=== PATIENT | female | born 1950 | race Caucasian/White ===

== ENCOUNTER 2016-11-22 07:11 | Inpatient (IN) ==
[2016-11-22] MEDS ORDERED: ONDANSETRON 4 MG/2 ML VIAL IV STA (07:46)
[2016-11-22] MEDS ORDERED: ONDANSETRON 4 MG/2 ML VIAL ONE ×2 (07:47→17:10)
--- NOTE | 2016-11-22 07:53 | Emergency Department Note ---
Arrival - Arrival Chief Complaint: Abdominal / Flank Pain Stated Complaint: Abd pain ED Nursing Triage Note: Brought in by EMS c/o RUQ pain-onset last night. Patient had her gallbladder removed by Dr. Rodriguez III on 11/17/16. Mode of Arrival: Stretcher Limitations: No Limitations Source: Patient, Significant other, RN Notes Reviewed Time Seen by Provider: 11/22/16 07:49 - History of Present Illness HPI Narrative: Patient is a 66-year-old white female who is 5 days postop laparoscopic cholecystectomy by Dr. Rodriguez the third. Patient had sudden onset of right upper quadrant abdominal pain at 10 PM last night. Patient complains of nausea vomiting and pain in the right upper quadrant which radiates to her right shoulder. Pain is moderate to severe. She denies any diarrhea. She denies any chills or fever. Onset (ago): hour(s) (10) Consistency: constant Severity: moderate, severe Quality: cramping, aching Date of Last Menstrual Period: menopause Allergies/Adverse Reactions: Allergies Allergy/AdvReac Type Severity Reaction Status Date / Time No Known Allergies Allergy Verified 11/14/16 10:47 Home Medications: Home Medications Medication Instructions Recorded Confirmed Type Aspirin 325 mg PO DAILY 11/14/16 11/17/16 History Aspirin [Aspirin EC] 81 mg PO DAILY 11/14/16 11/17/16 History Cholecalciferol (Vitamin D3) 2,000 unit PO DAILY 11/14/16 11/17/16 History [Vitamin D3] Ferrous Sulfate [Iron] 325 mg PO DAILY 11/14/16 11/17/16 History Gabapentin 300 mg PO DAILY 11/14/16 11/17/16 History Lansoprazole 15 mg PO DAILY 11/14/16 11/17/16 History Losartan [Cozaar] 50 mg PO DAILY 11/14/16 11/17/16 History Metoprolol Succinate 12.5 mg PO DAILY 11/14/16 11/17/16 History Multivitamin [Multivitamins] 1 each PO DAILY 11/14/16 11/17/16 History hydroCHLOROthiazide 12.5 mg PO DAILY 11/14/16 11/17/16 History [Hydrochlorothiazide] HYDROcodone/ACETAMIN 7.5-325 1 tablet PO Q4H PRN #30 tablet 11/17/16 Rx [[place] 7.5-325] Review of System - Review of System 12 point system: reviewed and no additional remarkable complaints except as stated - Review of System Constitutional: Absent: chills, fever Respiratory: Absent: cough, respiratory distress, wheezing Cardiovascular: Absent: chest pain Gastrointestinal: Present: as per HPI, abdominal pain, nausea, vomiting. Absent : diarrhea, constipation, hematemesis, melena, hematochezia Medical,Surgical,& Family Hx - Medical History Cardio: History of: Hypertension Neurology: No history of: Seizures HEENT: History of: Eye Problem (GLASSES) Endocrine: History of: Dyslipidemia Respiratory: Comment Only: Respiratory Problems (TUBE IN LUNG) Musculoskeletal: History of: Osteoporosis - Surgical History Cardiac Surgeries: Sugical HX of: Cardiac Surgery (CABG X3 DR HOUSER) Abdominal Surgeries: Surgical HX of: Cholecystectomy, Colonoscopy Reproductive Surgeries: Surgical HX of;: Breast Surgery (BX), Tubal Ligation - Family History Family History: Reports;: Family Heart Disease (DAD BROTHER), Family Stroke ( MOM GM) - Social History Smoking Status: Never smoker Frequency of Alcohol Use: None Type of Drug Use: None Lives With:: Spouse Functional capacity: independent ambulation Exam Vital Signs: Vital Signs Temperature 97.9 F 11/22/16 07:17 Pulse Rate 58 L 11/22/16 09:00 Respiratory Rate 18 11/22/16 09:00 Blood Pressure 153/72 11/22/16 09:00 O2 Sat by Pulse Oximetry 100 11/22/16 09:00 GENERAL: This is a well-nourished well-developed white female in no apparent distress. VITAL SIGNS: Reviewed HEENT: Head is atraumatic and normocephalic. Pupils are equal round react to light. Extraocular movements are intact. Oropharynx is benign with moist mucous membranes. NECK: Neck is soft and supple without tenderness. There are no masses. There is no lymphadenopathy. LUNGS: Lungs are clear to auscultation. Chest rises symmetrically. There is no chest wall tenderness. CV: Heart is regular rate and rhythm without murmurs rubs or gallops. ABDOMEN: Abdomen is soft, tender to palpation in the right upper quadrant without rebound. Minimal amount of guarding is present. There are no abdominal abnormal masses palpated. There is no organomegaly. Bowel sounds are present and active. Wounds are healing well without any evidence of infection, erythema, induration, or purulent drainage. SKIN: Skin is warm and dry. No rash. EXTREMITIES: Patient has full range of motion without tenderness. There is no pedal edema. NEUROLOGIC: Awake alert and oriented 4. Cranial nerves II through XII are grossly intact. Motor is 5 over 5 in all extremities bilaterally. Course - Consultations Consultation #1: Discussed with Dr. Jennifer BALLESTEROS. He will see the patient in the emergency department. Time: 08:53 Results - Labs CBC & BMP: 11/22/16 07:40 11/22/16 07:40 Lab Results: I have reviewed the patients labs Labs: Laboratory Tests 11/22/16 11/22/16 11/22/16 07:40 07:40 07:56 WBC 10.5 Hgb 12.0 Hct 33.6 L Plt Count 260 Sodium 135 L Potassium 3.7 Chloride 99 Carbon Dioxide 26 Anion Gap 13.7 BUN 20 H Creatinine 0.90 GFR Calculation 62 BUN/Creatinine Ratio 22.00 H Glucose 154 H Calcium 9.7 Total Bilirubin 1.70 H AST 1378 H ALT 1188 H Alkaline Phosphatase 166 H Total Protein 6.6 Albumin 4.1 Globulin 2.5 Albumin/Globulin Ratio 1.6 Lipase 86.0 Urine pH 7.0 Ur Specific [place] 1.012 Urine RBC 7 Urine WBC 1 - Diagnostic Findings Procedure: CT Abdomen and Pelvis: image reviewed by me (Interval development of intra-and extrahepatic ductal dilatation. Patient also has developed ascites and fluid in the gallbladder fossa.) Disposition Clinical Impression: Right upper quadrant abdominal pain, Status post cholecystectomy, Possible biliary leak, Elevated LFTs Case discussed with: patient, patient's family Disposition: Still a Patient Condition: Stable Time of Disposition: 09:15
[2016-11-22 07:56] LABS: Basophils % 0.2 % (0.0-0.8); Eosinophils % 0.4 % (0.00-10.9); Hematocrit 33.6 VOL% (35.7-47.0); Immature Granulocytes % 0.4 %; Immature Granulocytes Absolute 0.04 #; Lymphocytes # 1.2 10*3/uL (1.4-4.0); Lymphocytes % 11.1 % (21.3-54.2); Mean Corpuscular HGB Conc 35.7 GM/DL (32-36); Mean Corpuscular Hemoglobin 33 PG (27-34); Mean Corpuscular Volume 91.1 FL (87-102); Mean Platelet Volume 9.6 FL (9.6-12.0); Monocytes # 0.5 10*3/uL (0.11-0.8); Monocytes % 4.7 % (1.7-12.7); Neutrophils # 8.7 10*3/uL (1.4-7.4); Neutrophils % 83.2 % (38.7-73.9); Platelet Count 260 T/CUMM (130-400); Red Blood Count 3.69 MC/CUMM (3.8-5.5); Red Cell Distribution Width 11.9 % (9.3-17.3); White Blood Count 10.5 T/CUMM (4-12)
[2016-11-22 08:09] LABS: Apearance,Urine CLEAR (Clear); Bilirubin,Urine Negative (Negative); Blood, Urine Small mg/dL (Negative); Glucose,Urine (UA) Negative (Negative); Ketones,Urine Negative (Negative); Mucus,Urine Occasional /LPF (Occasional); Nitrite,Urine Negative (Negative); Protein,Urine Negative; RBC,Urine 7 /HPF (0-4); Squamous Epithelial Cell,Urine Occasional /HPF (0-10); Urine Color Yellow (Yellow); Urine Specific Gravity 1.012 (1.001-1.035); WBC,Urine 1 /HPF (0-6)
[2016-11-22 08:14] LABS: Albumin 4.1 G/DL (3.4-5.0); Bilirubin,Total 1.7 MG/DL (0.2-1.0); Calcium 9.7 MG/DL (8.5-10.1); Osmolality,Calculated 275.1 MOS/KG (273-304); Potassium 3.7 MMOL/L (3.5-5.1); Total Protein 6.6 G/DL (6.4-8.3)
--- NOTE | 2016-11-22 08:31 | CT Report ---
CT abdomen pelvis w con Indication: Right upper quadrant abdominal pain status post cholecystectomy. Comparison: CT abdomen and pelvis 11/17/2016. Intraoperative cholangiogram 11/17/2016. Technique: CT of the abdomen and pelvis was performed following administration of intravenous contrast. The CT examination was performed using one or more of the following dose reduction techniques: Automatic exposure control, adjustment of the mA and kV according to patient size, or iterative reconstruction techniques. Findings: Lower chest: Heart is enlarged. Biventricular enlargement as well as atrial enlargement is suggested. Coronary artery calcifications present. Previous coronary bypass surgery is present. The dependent pulmonary venous structures appear enlarged suggesting vascular congestive changes. Mild dependent atelectatic changes are present within the lower chest. Liver: The liver demonstrates distention of intra and extrahepatic bile duct. There is a small focus of increased attenuation at the confluence of the main pancreatic duct and extrahepatic bile duct measuring approximately 1 to 2 mm in size that could reflect a small stone within the extrahepatic bile duct. The amount of ascites anterior to the liver has increased. Gallbladder: The gallbladder is surgically absent. Within the gallbladder fossa, there is stranding attenuation is small amount fluid attenuation that could simply reflect sequelae of recent procedure. When compared to the recent comparison study, the overall mild stranding has increased and infectious process is not excluded. Spleen: Spleen is normal in size and appearance. Pancreas: Pancreas demonstrates prominence of the main pancreatic duct. Within the pancreatic head, the duct measures 2.8 mm. This prominence has increased since comparison study. No peripancreatic fluid is present. Uniform enhancement of the pancreatic parenchyma is demonstrated. Adrenal glands: The adrenal glands demonstrate no significant abnormalities. Kidneys: Focal hypodense lesion within the medial cortex of the right kidney image 53 measures approximately centimeter in size and has differential considerations include cysts as well as angiomyolipoma. This lesion is too small to further characterize. A similar hypodense lesion within the posterior cortex left kidney image #51 is present with similar differential considerations. Kidneys otherwise are unremarkable. Aorta: Aorta demonstrates diffuse intimal calcification with small penetrating ulcer suggested along the right lateral margin image #68. This measures approximately 9 mm. Moderately advanced intimal calcification and mural thrombus resulting in moderate stenosis of the left common iliac artery is additionally present. Inferior vena cava: The inferior vena cava demonstrates no significant abnormality. Lymph nodes: No adenopathy is noted within the abdomen or pelvis. Stomach and bowel: Small hiatal hernia is present. The stomach otherwise demonstrates no significant abnormality. The duodenum and small bowel demonstrate no acute findings. The large bowel demonstrates multiple diverticula in the sigmoid colon without evidence of acute inflammatory change. Intrapelvic contents: Small amount free fluid is noted posteriorly within the pelvis. The urinary bladder and uterus demonstrate no acute findings. Urinary bladder is moderately distended. Skeletal structures: The imaged bony structures of the lumbar spine, lower chest, pelvis, proximal femurs demonstrate no acute findings. Soft tissues and muscular structure of the body wall: Demonstrate no significant abnormalities. Impression: 1. There has been interval increase in dilation involving intra and extrahepatic biliary ductal system. There additionally has been development of ascites anterior to the liver but additionally within the pelvis. Given the degree of biliary distention, differential considerations could include bile leak. 2. Small punctate focus of increased attenuation within the distal bile duct possibly reflects small stone or enhancement. Distal obstructing lesion of the duct including cholangiocarcinoma should be considered. 3. Increased prominence of the main pancreatic duct could reflect sequelae of obstruction distal to the confluence with the bile duct. Correlation serum lipase is recommended to exclude acute pancreatitis. 4. The gallbladder fossa demonstrates increased fat stranding since comparison study performed November 17 and infectious process or inflammatory process is not excluded. 5. Otherwise stable appearance of intra-abdominal intrapelvic contents with findings as detailed. 11/22/2016 8:16 AM PROCEDURE INTERPRETED AT [facility] DEPARTMENT OF RADIOLOGY Final Report Signed by: Dr. Chuck Reilly
--- NOTE | 2016-11-22 08:41 | XRay Report ---
XR chest 1V portable Indication: Right upper quadrant abdominal pain. Comparison: Chest x-ray 11/14/2016 Technique: Portable AP chest was performed. Findings: The heart is stable in size compared to prior study. Changes from prior sternotomy appears stable. Pulmonary vasculature demonstrates no specific abnormality. Hilar structures demonstrate fairly symmetric appearance. The lungs appear clear. Bones and soft tissues demonstrate no evidence of acute pathology. Surgical clips compatible cholecystectomy are present. Impression: 1. No evidence of acute pathology. 11/22/2016 8:38 AM PROCEDURE INTERPRETED AT [facility] DEPARTMENT OF RADIOLOGY Final Report Signed by: Dr. Chuck Reilly
--- NOTE | 2016-11-22 08:44 | XRay Report ---
History: Right upper quadrant abdominal pain. Status post previous cholecystectomy Date: 11/22/2016 Study: Flat and left lateral decubitus abdomen Comparison exam: No similar x-ray available There is no evidence of pneumoperitoneum. Surgical clips from previous cholecystectomy overlie the right upper abdomen. There is large amount of stool in the colon. There is contrast material in the urinary bladder from a recent CT scan. There is no acute osseous abnormality. There is osteopenia. Impression: Large amount of retained stool in the colon, suggesting constipation. No definite acute process otherwise PROCEDURE INTERPRETED AT [facility] DEPARTMENT OF RADIOLOGY Final Report Signed by: Dr. Jessica Yan
[2016-11-22] MEDS ORDERED: ACETAMINOPHEN 325 MG TABLET PO PRN (09:17)
[2016-11-22] MEDS ORDERED: ONDANSETRON 4 MG/2 ML VIAL IV PRN (09:17)
[2016-11-22] MEDS ORDERED: MORPHINE 2 MG/1 ML SYRINGE IV PRN (09:17)
[2016-11-22 09:32] LABS: PT Patient Result 10.7 SECS; Partial Thromboplastin Time 24.8 SECS (0-40)
[2016-11-22] MEDS: DEXTROSE 5% NACL 0.45% 1,000 ML IV SCH ×2 (11:05→17:38)
--- NOTE | 2016-11-22 12:01 | Gastrointestinal Consult Note ---
<Kay Connolly - Last Filed: 11/22/16 11:55> Assessment and Plan (1) Right upper quadrant abdominal pain Status: Acute Assessment and plan: 11/22-Sudden onset RUQ pain following lap layne x 5 days postop. LFT elevated and CT findings noted. Will proceed with ERCP today to further evaluate. Plan and addendum to follow by Dr Yan. Current Visit: Yes History of Present Illness Chief complaint: Gallstones History of present illness: Ms. Del Angel is a 66 year old female who presented to the hospital with onset of RUQ last night. Pt states that she underwent a laparoscopic cholecystectomy [address] Rodriguez. She was doing well postoperatively until last night when she had an increase in pain in her RUQ. She states the pain continued to intensify and came to the ER for evaluation. She was found on admission to have elevated LFTs with transaminases significantly higher than last week. On last week bilirubin was 1.3, AST 111, ALT 82 and normal alk phos. Today she presents with bilirubin at 1.7, AST 1378, ALT 1188 and alk phos 166. She denies any fever or chills associated with this. Denies any nausea until she was given Morphine in the ER. She had CT of abdomen todayu which showed increased dilation of intra and extrahepatic biliary ductal system, possible stone in CBD and increased prominence of the main pancreatic duct. Pt had intraoperative cholangiogram during surgery with findings at that time of delayed opacification of the CBD with mild dilation. Discussed with Dr Yan and will proceed with ERCP at this time. Home Medications Medication Instructions Recorded Confirmed Type Aspirin 325 mg PO QAM 11/14/16 11/22/16 History Aspirin [Aspirin EC] 81 mg PO QAM 11/14/16 11/22/16 History Cholecalciferol (Vitamin D3) 2,000 unit PO QAM 11/14/16 11/22/16 History [Vitamin D3] Ferrous Sulfate [Iron] 325 mg PO QAM 11/14/16 11/22/16 History Gabapentin 300 mg PO QPM 11/14/16 11/22/16 History Lansoprazole 15 mg PO QAM 11/14/16 11/22/16 History Losartan [Cozaar] 50 mg PO QAM 11/14/16 11/22/16 History Metoprolol Succinate 12.5 mg PO QAM 11/14/16 11/22/16 History Multivitamin [Multivitamins] 1 each PO QAM 11/14/16 11/22/16 History hydroCHLOROthiazide 12.5 mg PO QAM 11/14/16 11/22/16 History [Hydrochlorothiazide] HYDROcodone/ACETAMIN 7.5-325 1 tablet PO Q4H PRN #30 tablet 11/17/16 11/22/16 Rx [[place] 7.5-325] Allergies Allergy/AdvReac Type Severity Reaction Status Date / Time No Known Allergies Allergy Verified 11/14/16 10:47 Medical,Surgical,& Family Hx - Medical History Cardio: History of: Hypertension Neurology: No history of: Seizures HEENT: History of: Eye Problem (GLASSES) Endocrine: History of: Dyslipidemia Respiratory: Comment Only: Respiratory Problems (TUBE IN LUNG) Musculoskeletal: History of: Osteoporosis - Surgical History Cardiac Surgeries: Sugical HX of: Cardiac Surgery (CABG X3 DR MIK) Abdominal Surgeries: Surgical HX of: Cholecystectomy (11/08), Colonoscopy Reproductive Surgeries: Surgical HX of;: Breast Surgery (BX), Tubal Ligation - Family History Family History: Reports;: Family Heart Disease (DAD BROTHER), Family Stroke ( MOM GM) - Social History Smoking Status: Never smoker Frequency of Alcohol Use: None Type of Drug Use: None 12 point system: reviewed and no additional remarkable complaints except as stated - Constitutional Constitutional: Present: as per HPI - EENT Eyes: Present: as per HPI Ears: Present: as per HPI Nose, mouth and throat: Present: as per HPI - Cardiovascular Cardiovascular: Present: as per HPI - Respiratory Respiratory: Present: as per HPI - Gastrointestinal Gastrointestinal: Present: as per HPI, abdominal pain, nausea - Genitourinary Genitourinary: Present: as per HPI - Musculoskeletal Musculoskeletal: Present: as per HPI - Neurological Neurological: Present: as per HPI - Psychiatric Psychiatric: Present: as per HPI - Endocrine Endocrine: Present: as per HPI - Hematologic/Lymphatic Hematologic/Lymphatic: Present: as per HPI Exam - Constitutional Vitals: Period Temp Pulse Resp BP Sys/Arana Pulse Ox Last 24 Hr 97.4 F-97.9 F 54-72 18-24 138-188/68-81 95-100 General appearance: normal weight, no acute distress - Head Head exam: Present: normal inspection, normocephalic - Eye Eye exam: Present: other (lids and conjunctiva unremarkable). Absent: scleral icterus - ENT ENT exam: Present: normal exam, normal oropharynx - Neck Neck exam: Present: normal inspection - Respiratory Respiratory exam: Present: clear to auscultation bilaterally. Absent: rales, rhonchi, wheezes - Cardiovascular Cardiovascular exam: Present: regular rate and rhythm. Absent: diastolic murmur , JVD, systolic murmur - GI/Abdominal GI/Abdominal exam: Present: normal bowel sounds, tenderness, soft. Absent: ascites, distended, mass, organomegaly - Extremities Exam Extremities exam: Present: normal inspection, full ROM - Back Exam Back exam: Present: normal inspection - Neurological Exam Neurological exam: Present: alert, oriented X3 - Psychiatric Psychiatric exam: Present: normal affect, normal mood - Skin Skin exam: Present: normal color, warm, dry Results - Labs CBC & BMP: 11/22/16 07:40 11/22/16 07:40 Lab Results: I have reviewed the past 24 hour labs - Diagnostic Findings Procedure: CT Abdomen and Pelvis: report reviewed by me Quality Measures - VTE Contraindication to Pharmacological VTE Prophylaxis: High Risk of Bleeding <Piero Yan - Last Filed: 11/22/16 12:26> History of Present Illness History of present illness: Ms. Del Angel is a 66 year old female Exam - Constitutional Vitals: Period Temp Pulse Resp BP Sys/Arana Pulse Ox Last 24 Hr 97.4 F-97.9 F 54-72 18-24 138-188/68-81 95-100 Results - Labs CBC & BMP: 11/22/16 07:40 11/22/16 07:40
[2016-11-22] MEDS ORDERED: MIDAZOLAM 2 MG/2 ML VIAL ONE (12:22)
[2016-11-22] MEDS ORDERED: fentaNYL 100 MCG/2 ML VIAL ONE (12:22)
--- NOTE | 2016-11-22 12:51 | General Surg History&Physical ---
Assessment and Plan - Time spent with patient Time spent with patient: Less than 30 minutes (1) Elevated LFTs Status: Acute Assessment and plan: She needs ERCP. I discussed this with Dr. Yan who is going ahead and doing this today. I do not see signs of sepsis or infection. We will see if she has a cystic duct stump leak. Current Visit: Yes History of Present Illness Chief complaint: Abdominal pain History of present illness: Ms. Del Angel is a 66 year old female Who had a laparoscopic cholecystectomy on Sunday. The time that I did her cholangiogram she has a dilated common bile duct. She was asymptomatic at that time and we did not have an endoscopist to do ERCP. I elected to complete her cholecystectomy and plan to bring her back this week to see about ERCP. Over the last day or so she has had increased pain and came to the emergency room. Her liver function tests are elevated. Home Medications Medication Instructions Recorded Confirmed Type Aspirin 325 mg PO QAM 11/14/16 11/22/16 History Aspirin [Aspirin EC] 81 mg PO [facility] 11/14/16 11/22/16 History Cholecalciferol (Vitamin D3) 2,000 unit PO QA 11/14/16 11/22/16 History [Vitamin D3] Ferrous Sulfate [Iron] 325 mg PO QAM 11/14/16 11/22/16 History Gabapentin 300 mg PO QPM 11/14/16 11/22/16 History Lansoprazole 15 mg PO QAM 11/14/16 11/22/16 History Losartan [Cozaar] 50 mg PO QA 11/14/16 11/22/16 History Metoprolol Succinate 12.5 mg PO [facility] 11/14/16 11/22/16 History Multivitamin [Multivitamins] 1 each PO QAM 11/14/16 11/22/16 History hydroCHLOROthiazide 12.5 mg PO QA 11/14/16 11/22/16 History [Hydrochlorothiazide] HYDROcodone/ACETAMIN 7.5-325 1 tablet PO Q4H PRN #30 tablet 11/17/16 11/22/16 Rx [[place] 7.5-325] Allergies Allergy/AdvReac Type Severity Reaction Status Date / Time No Known Allergies Allergy Verified 11/14/16 10:47 Medical,Surgical,& Family Hx - Medical History Cardio: History of: Hypertension Neurology: No history of: Seizures HEENT: History of: Eye Problem (GLASSES) Endocrine: History of: Dyslipidemia Respiratory: Comment Only: Respiratory Problems (TUBE IN LUNG) Musculoskeletal: History of: Osteoporosis - Surgical History Cardiac Surgeries: Sugical HX of: Cardiac Surgery (CABG X3 DR HOUSER) Abdominal Surgeries: Surgical HX of: Cholecystectomy (11/08), Colonoscopy Reproductive Surgeries: Surgical HX of;: Breast Surgery (BX), Tubal Ligation - Family History Family History: Reports;: Family Heart Disease (DAD BROTHER), Family Stroke ( MOM GM) - Social History Smoking Status: Never smoker Frequency of Alcohol Use: None Type of Drug Use: None Exam - Constitutional Vitals: Period Temp Pulse Resp BP Sys/Arana Pulse Ox Last 24 Hr 97.4 F-97.9 F 54-72 18-24 138-188/68-81 95-100 - Constitutional Constitutional: Absent: chills, fever(s) - Cardiovascular Cardiovascular: Absent: chest pain at rest, chest pain with activity, dyspnea, dyspnea on exertion - Respiratory Respiratory: Absent: dyspnea - Gastrointestinal Gastrointestinal: Present: abdominal pain. Absent: jaundice Quality Measures - VTE Contraindication to Pharmacological VTE Prophylaxis: High Risk of Bleeding Results - Labs CBC & BMP: 11/22/16 07:40 11/22/16 07:40
--- NOTE | 2016-11-22 13:24 | History and Physical Update ---
History and Physical Update - History and Physical H&P was reviewed, the patient examined and there: are no changes in the patients condition since last H&P was completed. - Physical Exam Mental Status: alert and oriented Heart: regular rate and rhythm Lung: clear to auscultation Abdomen: within normal limits Vitals: within normal limits
[2016-11-22] MEDS ORDERED: GLUCAGON 1 MG VIAL ONE ×2 (13:27→17:10)
--- NOTE | 2016-11-22 13:36 | Anesthesia Post-Op ---
Anesthesia Post OP - Post Ansesthetic Evaluation Patient seen in post op: Yes Resp: within normal limits CV: within normal limits Mental: within normal limits Temp: within normal limits [id number]: within normal limits Nausea and Vomiting: within normal limits Pain: within normal limits
--- NOTE | 2016-11-22 13:36 | Operative Note ---
Date of procedure: 11/22/16 Pre-op diagnosis: Elevated liver tests, dilated common bile duct, CBD stone on CT scan Procedure: Procedure: Endoscopic retrograde cholangiopancreatography with balloon dilation of pyloric channel and duodenal bulb, common bile duct sphincterotomy with balloon removal of common bile duct stone Brief clinical abstract: Patient is a 66-year-old female who had laparoscopic cholecystectomy 5 days ago for symptomatic stones. She did well until last night when she had upper abdominal pain radiating into her mid back. Presentation she has intra-and extrahepatic biliary dilatation on CT with opacity in the distal common bile duct suggestive of common bile duct stone. There was also a small amount of free fluid noted around the liver and in the pelvis. Her liver tests are elevated with total bilirubin 1.7 and transaminases in the 1000 range. Procedure findings: After informed consent was obtained, patient was placed in the prone position. Initially therapeutic video duodenoscope was used and advanced into the upper esophagus in blind fashion with no resistance encountered. Esophageal mucosa appeared normal. Stomach was examined including Metrix view the cardia and fundus. Pyloric channel was stenotic but with no ulceration. I was unable to advance the duodenoscope through this. This was withdrawn and gastroscope advanced at this level. I could not pass a gastroscope through the pyloric channel also. Consent was obtained from family for balloon dilation by phone. [id number] balloon was advanced under endoscopic visualization into the pyloric channel. This was inflated to 15 mm diameter for 30 seconds. The balloon was withdrawn and I was able to pass the endoscope through this into the duodenal bulb. Gastroscope was withdrawn and I attempted to advance the therapeutic duodenoscope again through the pyloric opening but it was still too tight. This was withdrawn and diagnostic duodenoscope was used passing through the pyloric opening into the bulb. In the distal portion of the bulb there was another moderate stenotic area encountered again with no ulceration. Duodena scope was again withdrawn and gastroscope advanced at this level. I could not pass through this narrowing again and 15 mm balloon was again advanced under endoscopic visualization and inflated for 30 seconds. There was no evidence of tear afterwards. I was then able to advance the diagnostic duodenoscope through this and visualize the ampulla which had normal appearance. Sphincterotome was used and initially pancreatogram obtained revealing normal caliber pancreatic duct with no filling defects. The endoscope was repositioned. Cannulation was somewhat difficult but I was able to deeply cannulate the common bile duct with sphincterotome using 0.035 inch guidewire. Biliary tree was filled with contrast. Right and left intrahepatic systems were moderately dilated. Common bile duct and common hepatic duct were dilated to around 14-15 mm diameter maximally. A small filling defect was noted in the distal common bile duct on fluoroscopy. An approximately 1 cm common bile duct sphincterotomy was performed over the guidewire with no bleeding noted. Then sphincterotome was withdrawn and occlusion balloon was advanced into the proximal common hepatic duct and inflated to 12 mm. 3 separate passes were made over the wire dragging it into the duodenum with small yellow gold colored stone passing. Occlusion cholangiogram was obtained afterwards with no residual filling defects seen. There is no evidence of bile leak in this patient with recent cholecystectomy. There was excellent drainage through the sphincterotomy opening afterwards. The endoscope was removed and patient appeared to tolerate the procedure well. 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 Would check H. pylori status at some point. Anesthesia: MAC Surgeon / Physician: Piero Yan Estimated blood loss: minimal Specimens: none sent Condition: stable Disposition: post procedure unit Results - Labs CBC & BMP: 11/22/16 07:40 11/22/16 07:40 Discharge Plan - Discharge Medications No Action Aspirin 325 mg PO QAM Aspirin [Aspirin EC] 81 mg PO QAM Losartan [Cozaar] 50 mg PO QAM hydroCHLOROthiazide [Hydrochlorothiazide] 12.5 mg PO QAM Metoprolol Succinate 12.5 mg PO QAM Cholecalciferol (Vitamin D3) [Vitamin D3] 2,000 unit PO QAM HYDROcodone/ACETAMIN 7.5-325 [[place] 7.5-325] 1 tablet PO Q4H PRN #30 tablet PRN Reason: Pain Moderate To Severe (4-10) Gabapentin 300 mg PO QPM Ferrous Sulfate [Iron] 325 mg PO QAM Lansoprazole 15 mg PO QAM Multivitamin [Multivitamins] 1 each PO QAM - Follow Up or Referral - Forms/Instructions
--- NOTE | 2016-11-22 14:07 | Fluoroscopy Report ---
[place] ERCP w sphincterotomy Indication: Gallstones. Elevated liver function studies. Comparison: CT of the abdomen and pelvis 11/22/2016. Technique: Multiple fluoroscopic images were obtained using the C-arm in the anterior projection during ERCP. The procedure is performed by Dr. Yan. Findings: Images as on CT demonstrate dilated intra and extrahepatic biliary ducts with placement of balloon for presumed sphincterotomy. The last image of the study demonstrates some improvement in caliber of the distal common bile duct and compared to additional cholangiogram performed 11/17/2016. Total fluoroscopy time is 7 minutes. Impression: 1. There does been some improvement in outflow within the distal biliary duct following sphincterotomy. No filling defects are present. Distal stricture is suggested either from benign or malignant etiology. 11/22/2016 1:54 PM PROCEDURE INTERPRETED AT [facility] DEPARTMENT OF RADIOLOGY Final Report Signed by: Dr. Chuck Reilly
[2016-11-22] MEDS: PIPERACILLIN/TAZOBACTAM 3,375 MG in SODIUM CHLORIDE 0.9% 100 ML IV SCH ×2 (15:56→23:25)
[2016-11-22] MEDS ORDERED: PROPOFOL 200 MG/20 ML VIAL IV ONE (17:10)
[2016-11-22] MEDS ORDERED: LIDOCAINE 2% 5 ML VIAL ONE (17:10)
[2016-11-22] MEDS: HYDROmorphone 2 MG/1 ML VIAL IV PRN ×2 (17:40→23:19)
[2016-11-22] MEDS: GABAPENTIN 300 MG CAPSULE PO SCH (18:36)
[2016-11-23] MEDS: DEXTROSE 5% NACL 0.45% 1,000 ML IV SCH ×4 (04:04→17:25)
[2016-11-23] MEDS: HYDROmorphone 2 MG/1 ML VIAL IV PRN ×3 (05:35→21:43)
[2016-11-23] MEDS: ASPIRIN 325 MG TABLET PO SCH (08:43)
[2016-11-23] MEDS: PIPERACILLIN/TAZOBACTAM 3,375 MG in SODIUM CHLORIDE 0.9% 100 ML IV SCH ×2 (08:43→16:11)
[2016-11-23] MEDS: METOPROLOL SUCCINATE XL 25 MG TABLET PO SCH (08:44)
[2016-11-23] MEDS: hydroCHLOROthiazide 12.5 MG CAPSULE PO SCH (08:44)
[2016-11-23] MEDS: LOSARTAN 50 MG TABLET PO SCH (08:44)
[2016-11-23] MEDS: PANTOPRAZOLE 40 MG TABLET PO SCH (08:45)
[2016-11-23 08:56] LABS: Basophils % 0.2 % (0.0-0.8); Eosinophils % 0.3 % (0.00-10.9); Hematocrit 33.4 VOL% (35.7-47.0); Hemoglobin 11.5 GM/DL (12.0-16.0); Immature Granulocytes % 0.4 %; Immature Granulocytes Absolute 0.04 #; Lymphocytes # 0.5 10*3/uL (1.4-4.0); Mean Corpuscular HGB Conc 34.4 GM/DL (32-36); Mean Corpuscular Hemoglobin 32 PG (27-34); Mean Corpuscular Volume 93.8 FL (87-102); Monocytes # 0.4 10*3/uL (0.11-0.8); Monocytes % 4.3 % (1.7-12.7); Neutrophils # 8.7 10*3/uL (1.4-7.4); Neutrophils % 89.8 % (38.7-73.9); Platelet Count 259 T/CUMM (130-400); Red Blood Count 3.56 MC/CUMM (3.8-5.5); Red Cell Distribution Width 12.2 % (9.3-17.3); White Blood Count 9.7 T/CUMM (4-12)
[2016-11-23 09:24] LABS: Albumin 3.2 G/DL (3.4-5.0); Bilirubin,Total 1.7 MG/DL (0.2-1.0); Calcium 8.8 MG/DL (8.5-10.1); Osmolality,Calculated 270.2 MOS/KG (273-304); Potassium 4.1 MMOL/L (3.5-5.1); Total Protein 5.7 G/DL (6.4-8.3)
[2016-11-23 09:50] LABS: Hypochromasia Slight; Platelet Estimate Normal
--- NOTE | 2016-11-23 10:08 | Gastrointestinal Progress Note ---
Assessment and Plan (1) Right upper quadrant abdominal pain Status: Acute Assessment and plan: 11/23-Post ERCP with findings noted. LFTs unchanged other than AST trending down. Advance to full liquids. Plan and addendum to follow by Dr Yan. 11/22-Sudden onset RUQ pain following lap layne x 5 days postop. LFT elevated and CT findings noted. Will proceed with ERCP today to further evaluate. Plan and addendum to follow by Dr Yan. Current Visit: Yes Gastroenterology - PN: Subj Interval history: CC: Abd pain Pt is seen awake and alert, states she had an uneventful night. She is having some continued abdominal discomfort but states improved from original onset. Denies any nausea or vomiting. She is afebrile. Her LFTs are essentially unchanged other than AST trending downward. Tolerating clear liquid diet. Wishes to advance this today. ERCP findings noted with stone removal as well as balloon dilation for pyloric stenosis/duodenal stenosis with history of PUD. Abdomen is soft, mild tenderness. ROS: Denies SOB or chest pain Exam (Progress Note) - Constitutional Vitals: Period Temp Pulse Resp BP Sys/Arana Pulse Ox Last 24 Hr 97.4 F-98.8 F 61-82 13-20 104-161/54-81 90-100 General appearance: normal weight, no acute distress - Head Head exam: Present: normal inspection, normocephalic - Eye Eye exam: Present: other (lids and conjunctiva unremarkable). Absent: scleral icterus - ENT ENT exam: Present: normal exam, normal oropharynx - Neck Neck exam: Present: normal inspection - Respiratory Respiratory exam: Present: clear to auscultation bilaterally. Absent: rales, rhonchi, wheezes - Cardiovascular Cardiovascular exam: Present: regular rate and rhythm. Absent: diastolic murmur , JVD, systolic murmur - GI/Abdominal GI/Abdominal exam: Present: normal bowel sounds, soft. Absent: ascites, distended, mass, organomegaly, tenderness - Extremities Exam Extremities exam: Present: normal inspection, full ROM - Back Exam Back exam: Present: normal inspection - Neurological Exam Neurological exam: Present: alert, oriented X3 - Psychiatric Psychiatric exam: Present: normal affect, normal mood - Skin Skin exam: Present: normal color, warm, dry Results - Labs CBC & BMP: 11/23/16 07:57 11/23/16 07:57 Lab Results: I have reviewed the past 24 hour labs
--- NOTE | 2016-11-23 10:12 | Event Note ---
She feels better. The ERCP did show the obstructing common duct stone which was removed and did not show bile leak even with pressurization of the biliary tree. Her CT scan does not show enough fluid to look at draining and I do not think that there is a bile leak or biloma present. Her lab work is not any worse though her transaminases are still up. I do not see signs of ongoing obstruction or pancreatitis. She does have a lipase pending. I think that we will be able to discharge her home today.
[2016-11-23] MEDS: GABAPENTIN 300 MG CAPSULE PO SCH (18:04)
[2016-11-24] MEDS: PIPERACILLIN/TAZOBACTAM 3,375 MG in SODIUM CHLORIDE 0.9% 100 ML IV SCH ×4 (00:48→23:45)
[2016-11-24] MEDS: DEXTROSE 5% NACL 0.45% 1,000 ML IV SCH (02:59)
[2016-11-24 06:26] LABS: Basophils % 0.1 % (0.0-0.8); Eosinophils % 0.1 % (0.00-10.9); Hematocrit 33.8 VOL% (35.7-47.0); Hemoglobin 11.6 GM/DL (12.0-16.0); Immature Granulocytes % 0.7 %; Immature Granulocytes Absolute 0.09 #; Lymphocytes # 0.5 10*3/uL (1.4-4.0); Lymphocytes % 3.8 % (21.3-54.2); Mean Corpuscular HGB Conc 34.3 GM/DL (32-36); Mean Corpuscular Hemoglobin 32 PG (27-34); Mean Corpuscular Volume 92.9 FL (87-102); Mean Platelet Volume 9.4 FL (9.6-12.0); Monocytes # 0.6 10*3/uL (0.11-0.8); Monocytes % 4.3 % (1.7-12.7); Neutrophils # 12.6 10*3/uL (1.4-7.4); Platelet Count 242 T/CUMM (130-400); Red Blood Count 3.64 MC/CUMM (3.8-5.5); White Blood Count 13.8 T/CUMM (4-12)
[2016-11-24 06:47] LABS: Hypochromasia Slight; Lymphocytes 1 % (20-55); Metamyelocytes 1 %; Segmented Neutrophils 92 % (50-85); Total Cells Counted 100
[2016-11-24 06:48] LABS: Platelet Estimate Normal
[2016-11-24 06:54] LABS: Albumin 2.9 G/DL (3.4-5.0); Bilirubin,Total 2.3 MG/DL (0.2-1.0); Calcium 8.3 MG/DL (8.5-10.1); Osmolality,Calculated 263.7 MOS/KG (273-304); Total Protein 5.5 G/DL (6.4-8.3)
[2016-11-24] MEDS: HYDROmorphone 2 MG/1 ML VIAL IV PRN ×3 (07:02→23:48)
[2016-11-24] MEDS: hydroCHLOROthiazide 12.5 MG CAPSULE PO SCH (08:06)
[2016-11-24] MEDS: PANTOPRAZOLE 40 MG TABLET PO SCH (08:06)
[2016-11-24] MEDS: METOPROLOL SUCCINATE XL 25 MG TABLET PO SCH (08:06)
[2016-11-24] MEDS: LOSARTAN 50 MG TABLET PO SCH (08:06)
[2016-11-24] MEDS: ASPIRIN 325 MG TABLET PO SCH (08:06)
--- NOTE | 2016-11-24 08:36 | Event Note ---
She still does not feel well but has less pain than yesterday. Her lipase is come down to normal. She is starting to take some p.o. diet. We have continued her IV fluids. She may be okay for discharge later today. This appears to be resolving post R ERCP pancreatitis
--- NOTE | 2016-11-24 08:51 | Gastrointestinal Progress Note ---
Assessment and Plan (1) Right upper quadrant abdominal pain Status: Acute Assessment and plan: 11/24-lipase back down to 197. LFTs trending downward. Tolerating full liquids in small amounts. For possible discharge home later today. Plan an addendum to followed by Dr. Yan. 11/23-Post ERCP with findings noted. LFTs unchanged other than AST trending down. Advance to full liquids. Plan and addendum to follow by Dr Yan. 11/22-Sudden onset RUQ pain following lap layne x 5 days postop. LFT elevated and CT findings noted. Will proceed with ERCP today to further evaluate. Plan and addendum to follow by Dr Yan. Current Visit: Yes Gastroenterology - PN: Subj Interval history: CC: Choledocholithiasis Patient is seen awake alert sitting up in bed. States she is having continued abdominal pain however states that it may be slightly improved. She denies any nausea or vomiting. Patient is afebrile. Lipase levels have trended down today to normal at 197. She is tolerating small amounts of full liquid diet. Abdomen is soft, tender to palpation. She is noted to be for possible discharge home later today. LFTs are noted to be trending downward however bilirubin slightly up at 2.3. ROS: Denies shortness of breath or chest pain Exam (Progress Note) - Constitutional Vitals: Period Temp Pulse Resp BP Sys/Arana Pulse Ox Last 24 Hr 98.6 F-99.7 F 67-96 16-20 96-163/56-83 92-95 - Other Additional findings: General appearance: normal weight, no acute distress - Head Head exam: Present: normal inspection, normocephalic - Eye Eye exam: Present: other (lids and conjunctiva unremarkable). Absent: scleral icterus - ENT ENT exam: Present: normal exam, normal oropharynx - Neck Neck exam: Present: normal inspection - Respiratory Respiratory exam: Present: clear to auscultation bilaterally. Absent: rales, rhonchi, wheezes - Cardiovascular Cardiovascular exam: Present: regular rate and rhythm. Absent: diastolic murmur , JVD, systolic murmur - GI/Abdominal GI/Abdominal exam: Present: normal bowel sounds, soft, tenderness. Absent: ascites, distended, mass, organomegaly - Extremities Exam Extremities exam: Present: normal inspection, full ROM - Back Exam Back exam: Present: normal inspection - Neurological Exam Neurological exam: Present: alert, oriented X3 - Psychiatric Psychiatric exam: Present: normal affect, normal mood - Skin Skin exam: Present: normal color, warm, dry Results - Labs CBC & BMP: 11/24/16 06:09 11/24/16 06:09 Lab Results: I have reviewed the past 24 hour labs Specialty Discharge - Follow Up or Referrals Follow up with: Froilan Rodriguez III., MD [Physician] -
[2016-11-24] MEDS: SODIUM CHLORIDE 0.9% 1,000 ML IV SCH ×2 (11:01→18:02)
--- NOTE | 2016-11-24 14:35 | Discharge Summary ---
Hospital Course - Hospital Course Hospital Course: The patient is a 66-year-old female who underwent laparoscopic cholecystectomy on 11/17/2016 with planned ERCP to follow this week after which she presented back to the ER increased abdominal pain and elevated liver functions. At that time gastric urology was consulted to complete the ERCP which was performed on . Postprocedure, she had increase in pain as well as increase in her lipase with likely post ERCP pancreatitis. She was treated with bowel rest and IV fluids to which she responded well and her lipase trended to a normal level. She was ultimately tolerating oral intake and activity with adequate pain management; she was discharged home in good condition. Keep previously established appointment with Dr. Rodriguez. Diagnosis - Discharge Diagnosis (1) Cholelithiases Status: Acute (2) Elevated LFTs Status: Acute (3) Pancreatitis due to common bile duct stone Status: Acute Specialty Discharge - Follow Up or Referrals Follow up with: Froilan Rodriguez III., MD [Physician] - 1 Week (Call Dr. Rodriguez office Sunday to reschedule follow-up appt for approximately 1 week. ) Discharge Plan - Discharge Data Disposition: Disch To Home/Self Care Condition at Discharge: Stable Discharge Diet: advance to your usual diet Activity: no lifting (> 10 lb) Hygiene: may shower Driving: not until seen by doctor Contact your physician if you experience:: fever over 101, Difficulty voiding, Redness or swelling, Nausea/Vomiting, Shortness of breath, Bleeding, pain uncontrolled by pain medications Wound / Dressing Care Instructions: Keep surgical incisions clean and dry. - Discharge Medications New HYDROcodone/ACETAMIN 7.5-325 [[place] 7.5-325] 1 tablet PO Q4H PRN #20 tablet PRN Reason: Pain Moderate To Severe (4-10) Continue Aspirin 325 mg PO QAM Aspirin [Aspirin EC] 81 mg PO QAM Losartan [Cozaar] 50 mg PO QAM hydroCHLOROthiazide [Hydrochlorothiazide] 12.5 mg PO QAM Metoprolol Succinate 12.5 mg PO QAM Cholecalciferol (Vitamin D3) [Vitamin D3] 2,000 unit PO QAM HYDROcodone/ACETAMIN 7.5-325 [[place] 7.5-325] 1 tablet PO Q4H PRN #30 tablet PRN Reason: Pain Moderate To Severe (4-10) Gabapentin 300 mg PO QPM Ferrous Sulfate [Iron] 325 mg PO QAM Lansoprazole 15 mg PO QAM Multivitamin [Multivitamins] 1 each PO QAM - Follow Up or Referral Follow Up: Froilan Rodriguez III., MD [Physician] - 1 Week (Call Dr. Rodriguez office Sunday to reschedule follow-up appt for approximately 1 week. ) - Forms/Instructions Instructions: Pancreatitis (DC) Exam - Constitutional Vitals: Period Temp Pulse Resp BP Sys/Arana Pulse Ox Last 24 Hr 98.6 F-99.7 F 51-97 16-20 101-163/57-83 92-97 Discharge Results Procedures and tests throughout hospitalization: Pending Orders 11/25/16 04:00 CMP [Comprehensive Metabolic Panel] IN AM Comp Blood Count Auto Diff IN AM 1. Endoscopic retrograde cholangiopancreatography with balloon dilation of pyloric channel and duodenal bulb, common bile duct sphincterotomy with balloon removal of common bile duct stone Labs on day of discharge: Labs from last 24 hours 11/24/16 11/24/16 06:09 06:09 WBC 13.8 H D RBC 3.64 L Hgb 11.6 L Hct 33.8 L MCV 92.9 MCH 32 MCHC 34.3 RDW 12.0 Plt Count 242 MPV 9.4 L Neut % (Auto) 91.0 H Lymph % (Auto) 3.8 L [place] % (Auto) 4.3 Eos % (Auto) 0.1 Baso % (Auto) 0.1 Neut # (Auto) 12.6 H Lymph # (Auto) 0.5 L [place] # (Auto) 0.6 Eos # (Auto) 0.0 Baso # (Auto) 0.0 Total Counted 100 Immature Gran % 0.7 Nucleated RBC % 0.0 Immature Gran # 0.09 Segmented Neutrophils 92 H Lymphocytes 1 L Monocytes 5 Basophils 1.0 H Metamyelocytes 1 Nucleated RBCs # 0.00 Platelet Estimate Normal Hypochromasia Slight Sodium 131 L Potassium 4.0 Chloride 96 L Carbon Dioxide 27 Anion Gap 12.0 BUN 11 Creatinine 1.00 GFR Calculation 54 BUN/Creatinine Ratio 11.00 Glucose 144 H Calculated Osmolality 263.7 L Calcium 8.3 L Total Bilirubin 2.30 H AST 119 H ALT 657 H Alkaline Phosphatase 148 H Total Protein 5.5 L Albumin 2.9 L Globulin 2.6 Albumin/Globulin Ratio 1.1 Amylase 75 Lipase 197.0 D - Imaging and Cardiology Procedure: Abdominal x-ray: image reviewed by me, report reviewed by me, Chest x -ray: image reviewed by me, report reviewed by me, CT Abdomen and Pelvis: image reviewed by me, report reviewed by me DS: Provider Date of admission: 11/24/16 08:37 Primary care physician: [place] Vitale MD Attending physician on admission: Froilan Rodriguez III., Consults: 11/22/16 11:46 Consult to Physician [CONS] Routine Comment: gallstones Consulting Provider: Piero Yan Consulting Provider Notified: Yes When should Consulting Provider be notified: Now Person Notified: elvia Date Notified: 11/22/16 Time Notified: 11:51 Discharging clinician: Megan Geiger PA-C
[2016-11-24] MEDS: GABAPENTIN 300 MG CAPSULE PO SCH (18:54)
[2016-11-25 02:26] LABS: Basophils % 0.2 % (0.0-0.8); Eosinophils # 0.2 10*3/uL (0.0-0.87); Eosinophils % 2.2 % (0.00-10.9); Hematocrit 30.2 VOL% (35.7-47.0); Hemoglobin 10.3 GM/DL (12.0-16.0); Immature Granulocytes % 0.6 %; Immature Granulocytes Absolute 0.06 #; Lymphocytes % 10.3 % (21.3-54.2); Mean Corpuscular HGB Conc 34.1 GM/DL (32-36); Mean Corpuscular Hemoglobin 32 PG (27-34); Mean Corpuscular Volume 93.5 FL (87-102); Mean Platelet Volume 9.9 FL (9.6-12.0); Monocytes # 0.7 10*3/uL (0.11-0.8); Monocytes % 7.2 % (1.7-12.7); Neutrophils % 79.5 % (38.7-73.9); Platelet Count 240 T/CUMM (130-400); Red Blood Count 3.23 MC/CUMM (3.8-5.5)
[2016-11-25 03:07] LABS: Albumin 2.5 G/DL (3.4-5.0); Bilirubin,Total 1.9 MG/DL (0.2-1.0); Calcium 8.5 MG/DL (8.5-10.1); Osmolality,Calculated 269.1 MOS/KG (273-304); Potassium 3.8 MMOL/L (3.5-5.1); Total Protein 4.9 G/DL (6.4-8.3)
[2016-11-25] MEDS: SODIUM CHLORIDE 0.9% 1,000 ML IV SCH ×3 (04:57→09:55)
[2016-11-25] MEDS: PIPERACILLIN/TAZOBACTAM 3,375 MG in SODIUM CHLORIDE 0.9% 100 ML IV SCH (08:49)
[2016-11-25] MEDS: METOPROLOL SUCCINATE XL 25 MG TABLET PO SCH (08:50)
[2016-11-25] MEDS: ASPIRIN 325 MG TABLET PO SCH (08:50)
[2016-11-25] MEDS: hydroCHLOROthiazide 12.5 MG CAPSULE PO SCH (08:50)
[2016-11-25] MEDS: PANTOPRAZOLE 40 MG TABLET PO SCH (08:50)
[2016-11-25] MEDS: LOSARTAN 50 MG TABLET PO SCH (08:50)
--- NOTE | 2016-11-25 09:00 | Event Note ---
11/25/2016. Patient is afebrile vital signs are stable at this time. She is tolerating her full liquids without too much trouble but they have not advanced her to some solids. Abdomen is soft nontender with good bowel sounds present. She looks good enough to go ahead and be discharged we can follow her up in the office. Instructed her on to the care activities and her diet.
[2016-11-25 11:37] VITALS: BP 127/67
== END 2016-11-25 12:40 | disposition home or self-care (01) | DRG 444 ==
LOC: EDUNIT# → EDBD → N.ED 07:11 → N.EDINP 07:11 → N.3E 10:19
PROVIDERS: ADMIT Surgery; ATTEND Surgery
PROC: ERCPWSP (ICD-10-PCS; 2016-11-22 12:35)

== ENCOUNTER 2018-09-06 17:30 | Inpatient (IN) ==
[2018-09-06 18:05] LABS: Basophils % 0.4 % (0.0-0.8); Eosinophils # 0.2 10*3/uL (0.0-0.87); Eosinophils % 1.5 % (0.00-10.9); Hematocrit 26.2 VOL% (35.7-47.0); Hemoglobin 8.5 GM/DL (12.0-16.0); Immature Granulocytes % 0.5 %; Immature Granulocytes Absolute 0.05 #; Lymphocytes # 1.4 10*3/uL (1.4-4.0); Lymphocytes % 14.1 % (21.3-54.2); Mean Corpuscular HGB Conc 32.4 GM/DL (32-36); Mean Corpuscular Hemoglobin 31 PG (27-34); Mean Corpuscular Volume 95.3 FL (87-102); Mean Platelet Volume 10.3 FL (9.6-12.0); Monocytes # 0.5 10*3/uL (0.11-0.8); Monocytes % 5.2 % (1.7-12.7); Neutrophils # 7.8 10*3/uL (1.4-7.4); Neutrophils % 78.3 % (38.7-73.9); Platelet Count 245 T/CUMM (130-400); Red Blood Count 2.75 MC/CUMM (3.8-5.5); Red Cell Distribution Width 11.7 % (9.3-17.3)
[2018-09-06 18:22] LABS: Albumin 3.2 G/DL (3.4-5.0); Bilirubin,Total 0.4 MG/DL (0.2-1.0); Calcium 8.5 MG/DL (8.5-10.1); Osmolality,Calculated 290.8 MOS/KG (273-304); Potassium 4.5 MMOL/L (3.5-5.1); Total Protein 5.8 G/DL (6.4-8.3)
[2018-09-06] MEDS ORDERED: SODIUM CHLORIDE 0.9% 1,000 ML IV STA (18:32)
[2018-09-06] MEDS ORDERED: SODIUM CHLORIDE 0.9% 1,000 ML IV PRN (18:46)
[2018-09-06] MEDS: SODIUM CHLORIDE 0.9% 1,000 ML IV SCH (20:37)
[2018-09-06] MEDS: ACETAMINOPHEN 325 MG TABLET PO PRN (23:33)
[2018-09-07 05:58] LABS: Basophils % 0.3 % (0.0-0.8); Eosinophils % 0.2 % (0.00-10.9); Hematocrit 32.1 VOL% (35.7-47.0); Hemoglobin 11.2 GM/DL (12.0-16.0); Immature Granulocytes % 0.6 %; Immature Granulocytes Absolute 0.06 #; Lymphocytes # 1.8 10*3/uL (1.4-4.0); Lymphocytes % 17.6 % (21.3-54.2); Mean Corpuscular HGB Conc 34.9 GM/DL (32-36); Mean Corpuscular Hemoglobin 32 PG (27-34); Mean Corpuscular Volume 91.5 FL (87-102); Mean Platelet Volume 11.2 FL (9.6-12.0); Monocytes # 0.4 10*3/uL (0.11-0.8); Monocytes % 4.3 % (1.7-12.7); Neutrophils # 7.8 10*3/uL (1.4-7.4); Platelet Count 233 T/CUMM (130-400); Red Blood Count 3.51 MC/CUMM (3.8-5.5); Red Cell Distribution Width 12.3 % (9.3-17.3); White Blood Count 10.1 T/CUMM (4-12)
[2018-09-07 06:03] LABS: Calcium 8.2 MG/DL (8.5-10.1); Osmolality,Calculated 301.3 MOS/KG (273-304); Potassium 4.8 MMOL/L (3.5-5.1)
[2018-09-07 07:39] LABS: Apearance,Urine CLEAR (Clear); Bilirubin,Urine Negative (Negative); Blood, Urine Negative (Negative); Glucose,Urine (UA) Negative (Negative); Hyaline Casts,Urine 1 /LPF (0-3); Ketones,Urine Negative (Negative); Nitrite,Urine Negative (Negative); Protein,Urine Negative; RBC,Urine <1 /HPF (0-4); Urine Color Straw (Yellow); Urine Specific Gravity 1.017 (1.001-1.035); Urine Urobilinogen < 2.0 EU/DL (0.2-1.0); WBC,Urine <1 /HPF (0-6)
[2018-09-07] MEDS ORDERED: PANTOPRAZOLE 40 MG VIAL IV SCH ×2 (09:00→21:00)
[2018-09-07] MEDS ORDERED: hydrALAZINE 20 MG/1 ML VIAL IV PRN (11:08)
[2018-09-07 11:46] LABS: Hematocrit 30.5 VOL% (35.7-47.0); Hemoglobin 10.3 GM/DL (12.0-16.0)
[2018-09-07] MEDS: MORPHINE 4 MG/1 ML VIAL IV PRN ×3 (11:51→19:22)
[2018-09-07] MEDS: SODIUM CHLORIDE 0.9% 1,000 ML IV SCH (13:38)
[2018-09-07] MEDS: PANTOPRAZOLE INJ 200 MG in SODIUM CHLORIDE 0.9% 250 ML IV SCH (13:39)
[2018-09-07 19:25] LABS: Hematocrit 27.2 VOL% (35.7-47.0); Hemoglobin 9.2 GM/DL (12.0-16.0)
[2018-09-07] MEDS: ZALEPLON 5 MG CAPSULE PO PRN (21:25)
[2018-09-08] MEDS: MORPHINE 4 MG/1 ML VIAL IV PRN ×4 (00:49→14:15)
[2018-09-08] MEDS: ONDANSETRON 4 MG/2 ML VIAL IV PRN ×2 (01:05→07:22)
[2018-09-08] MEDS: SODIUM CHLORIDE 0.9% 1,000 ML IV SCH ×3 (01:12→16:45)
[2018-09-08 05:53] LABS: Basophils % 0.6 % (0.0-0.8); Eosinophils # 0.4 10*3/uL (0.0-0.87); Eosinophils % 5.6 % (0.00-10.9); Hemoglobin 8.4 GM/DL (12.0-16.0); Immature Granulocytes % 0.4 %; Immature Granulocytes Absolute 0.03 #; Lymphocytes # 2.2 10*3/uL (1.4-4.0); Lymphocytes % 31.9 % (21.3-54.2); Mean Corpuscular HGB Conc 33.6 GM/DL (32-36); Mean Corpuscular Hemoglobin 31 PG (27-34); Mean Corpuscular Volume 92.6 FL (87-102); Mean Platelet Volume 10.6 FL (9.6-12.0); Monocytes # 0.5 10*3/uL (0.11-0.8); Monocytes % 6.6 % (1.7-12.7); Neutrophils # 3.8 10*3/uL (1.4-7.4); Neutrophils % 54.9 % (38.7-73.9); Platelet Count 156 T/CUMM (130-400); White Blood Count 6.8 T/CUMM (4-12)
[2018-09-08 06:24] LABS: Calcium 8.3 MG/DL (8.5-10.1); Osmolality,Calculated 293.8 MOS/KG (273-304); Potassium 4.3 MMOL/L (3.5-5.1)
[2018-09-08] MEDS: ACETAMINOPHEN 325 MG TABLET PO PRN (07:21)
[2018-09-08] MEDS ORDERED: FUROSEMIDE 20 MG/2 ML VIAL IV ONE (12:43)
[2018-09-08] MEDS: PANTOPRAZOLE INJ 200 MG in SODIUM CHLORIDE 0.9% 250 ML IV SCH (12:48)
[2018-09-08] MEDS: GABAPENTIN 600 MG TABLET PO SCH ×3 (14:15→20:35)
[2018-09-08] MEDS: diphenhydrAMINE CAP 25 MG CAPSULE PO PRN (14:30)
[2018-09-08] MEDS ORDERED: SODIUM CHLORIDE 0.9% 1,000 ML IV PRN (18:03)
[2018-09-08] MEDS: AMITRIPTYLINE 50 MG TABLET PO SCH (20:35)
[2018-09-08] MEDS: ZALEPLON 5 MG CAPSULE PO PRN (20:35)
[2018-09-09 01:01] LABS: Hematocrit 34.6 VOL% (35.7-47.0); Hemoglobin 11.4 GM/DL (12.0-16.0)
[2018-09-09] MEDS: SODIUM CHLORIDE 0.9% 1,000 ML IV SCH ×2 (03:38→13:47)
[2018-09-09 08:16] LABS: Basophils # 0.1 10*3/uL (0.0-0.2); Basophils % 0.7 % (0.0-0.8); Eosinophils # 0.5 10*3/uL (0.0-0.87); Eosinophils % 7.1 % (0.00-10.9); Hematocrit 34.5 VOL% (35.7-47.0); Hemoglobin 11.5 GM/DL (12.0-16.0); Immature Granulocytes % 0.3 %; Immature Granulocytes Absolute 0.02 #; Lymphocytes # 1.5 10*3/uL (1.4-4.0); Lymphocytes % 20.7 % (21.3-54.2); Mean Corpuscular HGB Conc 33.3 GM/DL (32-36); Mean Corpuscular Hemoglobin 30 PG (27-34); Mean Corpuscular Volume 89.8 FL (87-102); Mean Platelet Volume 9.8 FL (9.6-12.0); Monocytes # 0.5 10*3/uL (0.11-0.8); Monocytes % 6.2 % (1.7-12.7); Neutrophils # 4.9 10*3/uL (1.4-7.4); Platelet Count 157 T/CUMM (130-400); Red Blood Count 3.84 MC/CUMM (3.8-5.5); Red Cell Distribution Width 13.4 % (9.3-17.3); White Blood Count 7.5 T/CUMM (4-12)
[2018-09-09 08:36] LABS: Calcium 8.6 MG/DL (8.5-10.1); Osmolality,Calculated 287.8 MOS/KG (273-304); Potassium 3.6 MMOL/L (3.5-5.1)
[2018-09-09] MEDS ORDERED: PROPOFOL 200 MG/20 ML VIAL IV ONE (09:00)
[2018-09-09] MEDS ORDERED: LIDOCAINE 100 MG/5 ML SYRINGE ONE (09:00)
[2018-09-09] MEDS: CHOLECALCIFEROL 1,000 UNIT TABLET PO SCH (10:05)
[2018-09-09] MEDS: diphenhydrAMINE CAP 25 MG CAPSULE PO PRN (10:05)
[2018-09-09] MEDS: GABAPENTIN 600 MG TABLET PO SCH ×4 (10:06→21:03)
[2018-09-09] MEDS: ROSUVASTATIN 10 MG TABLET PO SCH (10:09)
[2018-09-09] MEDS: ACETAMINOPHEN 325 MG TABLET PO PRN ×2 (11:34→15:51)
[2018-09-09] MEDS: MORPHINE 4 MG/1 ML VIAL IV PRN (12:29)
[2018-09-09] MEDS: PANTOPRAZOLE INJ 200 MG in SODIUM CHLORIDE 0.9% 250 ML IV SCH (19:58)
[2018-09-09] MEDS: PANTOPRAZOLE 40 MG TABLET PO SCH (21:03)
[2018-09-09] MEDS: AMITRIPTYLINE 50 MG TABLET PO SCH (21:03)
[2018-09-10 05:18] LABS: Basophils # 0.1 10*3/uL (0.0-0.2); Basophils % 0.7 % (0.0-0.8); Eosinophils # 0.5 10*3/uL (0.0-0.87); Eosinophils % 6.3 % (0.00-10.9); Hematocrit 34.3 VOL% (35.7-47.0); Hemoglobin 11.2 GM/DL (12.0-16.0); Immature Granulocytes % 0.4 %; Immature Granulocytes Absolute 0.03 #; Lymphocytes # 1.8 10*3/uL (1.4-4.0); Lymphocytes % 25.1 % (21.3-54.2); Mean Corpuscular HGB Conc 32.7 GM/DL (32-36); Mean Corpuscular Hemoglobin 30 PG (27-34); Mean Corpuscular Volume 91.2 FL (87-102); Mean Platelet Volume 10.1 FL (9.6-12.0); Monocytes # 0.5 10*3/uL (0.11-0.8); Monocytes % 7.1 % (1.7-12.7); Neutrophils # 4.4 10*3/uL (1.4-7.4); Neutrophils % 60.4 % (38.7-73.9); Platelet Count 182 T/CUMM (130-400); Red Blood Count 3.76 MC/CUMM (3.8-5.5); Red Cell Distribution Width 13.2 % (9.3-17.3); White Blood Count 7.3 T/CUMM (4-12)
[2018-09-10 05:49] LABS: Albumin 3.2 G/DL (3.4-5.0); Bilirubin,Total 1.6 MG/DL (0.2-1.0); Calcium 8.6 MG/DL (8.5-10.1); Osmolality,Calculated 282.1 MOS/KG (273-304); Potassium 3.2 MMOL/L (3.5-5.1); Total Protein 5.8 G/DL (6.4-8.3)
[2018-09-10] MEDS: SODIUM CHLORIDE 0.9% 1,000 ML IV SCH (06:21)
[2018-09-10] MEDS ORDERED: MULTIVITAMIN (CENTRUM) TABLET PO SCH (09:00)
[2018-09-10] MEDS: CHOLECALCIFEROL 1,000 UNIT TABLET PO SCH (09:05)
[2018-09-10] MEDS: GABAPENTIN 600 MG TABLET PO SCH ×2 (09:06→12:03)
[2018-09-10] MEDS: ROSUVASTATIN 10 MG TABLET PO SCH (09:06)
[2018-09-10] MEDS: ACETAMINOPHEN 325 MG TABLET PO PRN (09:06)
[2018-09-10] MEDS: PANTOPRAZOLE 40 MG TABLET PO SCH (09:07)
[2018-09-10] MEDS ORDERED: POTASSIUM CHLORIDE 20 MEQ TABLET PO ONE (09:09)
[2018-09-10 09:22] VITALS: BP 160/95
[2018-09-10] MEDS ORDERED: PANTOPRAZOLE 40 MG VIAL IV SCH (21:00)
== END 2018-09-10 11:50 | disposition home or self-care (01) | DRG 378 ==
LOC: EDBD → EDUNIT# → N.EDINP 17:30 → N.ED 17:30 → SUATTDRO 19:45 → N.4E 21:02 → N.ICU 09-07 01:38 → SUATTDRO 09-07 14:38 → N.4E 09-09 15:43
PROVIDERS: ADMIT Internal Medicine; ATTEND Internal Medicine

== ENCOUNTER 2021-11-22 23:51 | Inpatient (IN) ==
[2021-11-23 00:57] LABS: Basophils # 0.1 10*3/uL (0.0-0.2); Basophils % 0.5 % (0.0-0.8); Eosinophils # 0.1 10*3/uL (0.0-0.87); Eosinophils % 0.8 % (0.00-10.9); Hematocrit 36.6 VOL% (35.7-47.0); Hemoglobin 12.4 GM/DL (12.0-16.0); Immature Granulocytes % 0.4 %; Immature Granulocytes Absolute 0.04 #; Lymphocytes # 1.4 10*3/uL (1.4-4.0); Lymphocytes % 13.4 % (21.3-54.2); Mean Corpuscular HGB Conc 33.9 GM/DL (32-36); Mean Corpuscular Volume 93.8 FL (87-102); Mean Platelet Volume 10.1 FL (9.6-12.0); Monocytes # 0.3 10*3/uL (0.11-0.8); Monocytes % 3.1 % (1.7-12.7); Neutrophils % 81.8 % (38.7-73.9); Platelet Count 257 T/CUMM (130-400); Red Cell Distribution Width 11.8 % (9.3-17.3); White Blood Count 10.4 T/CUMM (4-12)
[2021-11-23 01:02] LABS: Albumin 4.3 G/DL (3.4-5.0); Bilirubin,Total 0.7 MG/DL (0.20-1.00); Calcium 10.5 MG/DL (8.5-10.1); Osmolality,Calculated 278.8 MOS/KG (273-304); Potassium 4.2 MMOL/L (3.5-5.1); Total Protein 7.1 G/DL (6.4-8.2)
[2021-11-23] MEDS ORDERED: NITROGLYCERIN 2% OINT 1 INCH/GM PACK TOP STA (01:42)
[2021-11-23] MEDS ORDERED: ONDANSETRON 4 MG/2 ML VIAL IV STA (01:42)
[2021-11-23] MEDS ORDERED: ASPIRIN 325 MG TABLET PO STA (01:42)
[2021-11-23] MEDS ORDERED: MORPHINE 2 MG/1 ML SYRINGE IV STA (01:42)
[2021-11-23] MEDS ORDERED: ENOXAPARIN 100 MG/ML SYRINGE SUBCUT STA (01:42)
[2021-11-23] MEDS ORDERED: GLUCAGON 1 MG VIAL IM PRN (02:03)
[2021-11-23] MEDS ORDERED: ONDANSETRON 4 MG/2 ML VIAL IV PRN (02:03)
[2021-11-23] MEDS ORDERED: DEXTROSE 10% 250 ML BAG IV PRN (02:13)
[2021-11-23] MEDS: NITROGLYCERIN 2% OINT 1 INCH/GM PACK TOP SCH ×2 (02:53→15:54)
[2021-11-23 07:10] LABS: Albumin 3.7 G/DL (3.4-5.0); Bilirubin,Total 0.7 MG/DL (0.20-1.00); Calcium 9.3 MG/DL (8.5-10.1); Osmolality,Calculated 278.7 MOS/KG (273-304); Potassium 5.5 MMOL/L (3.5-5.1); Risk Ratio 3.35; Total Protein 6.5 G/DL (6.4-8.2); VLDL Cholesterol 23.8 MG/DL
[2021-11-23] MEDS ORDERED: INSULIN REGULAR 100 UNIT/ML SUBCUT SCH (07:30)
[2021-11-23] MEDS ORDERED: diphenhydrAMINE CAP 25 MG CAPSULE PO ONE (07:33)
[2021-11-23] MEDS ORDERED: DIAZEPAM 5 MG TABLET PO ONE (07:33)
[2021-11-23] MEDS ORDERED: SODIUM CHLORIDE 0.9% 1,000 ML IV SCH (08:00)
[2021-11-23] MEDS ORDERED: ASPIRIN EC 325 MG TABLET PO SCH (09:00)
[2021-11-23] MEDS ORDERED: fentaNYL 100 MCG/2 ML VIAL ONE ×2 (09:08→10:15)
[2021-11-23] MEDS ORDERED: MIDAZOLAM 2 MG/2 ML VIAL ONE ×4 (09:08→10:38)
[2021-11-23] MEDS ORDERED: BIVALIRUDIN 250 MG VIAL IV ONE (09:37)
[2021-11-23] MEDS ORDERED: TICAGRELOR 90 MG TABLET ONE (10:42)
[2021-11-23] MEDS ORDERED: SODIUM ZIRCONIUM CYCLOSILICATE 10 GM PACK PO ONE (10:53)
[2021-11-23] MEDS ORDERED: NITROGLYCERIN SL 0.4 MG TABLET SL ONE (13:13)
[2021-11-23] MEDS: NITROGLYCERIN SL 0.4 MG TABLET SL PRN (13:13)
[2021-11-23] MEDS ORDERED: MORPHINE 10 MG/1 ML VIAL ONE (13:25)
[2021-11-23] MEDS: MORPHINE 2 MG/1 ML SYRINGE IV PRN (13:26)
[2021-11-23] MEDS ORDERED: ENOXAPARIN 60 MG/0.6 ML SYRINGE SUBCUT SCH (14:00)
[2021-11-23] MEDS ORDERED: NITROGLYCERIN 2% OINT 1 INCH/GM PACK TOP ONE ×2 (14:16→14:27)
[2021-11-23] MEDS ORDERED: ALUM/MAG/SIMETH/LIDO VISC 1:1 30 ML BOTTLE PO ONE ×2 (14:16→14:27)
[2021-11-23] MEDS: LOSARTAN 50 MG TABLET PO SCH (15:52)
[2021-11-23] MEDS: PANTOPRAZOLE 40 MG TABLET PO SCH (15:52)
[2021-11-23] MEDS: METOPROLOL SUCCINATE XL 25 MG TABLET PO SCH (15:53)
[2021-11-23] MEDS: TICAGRELOR 90 MG TABLET PO SCH (20:41)
[2021-11-23] MEDS: ROSUVASTATIN 10 MG TABLET PO SCH (20:41)
[2021-11-24] MEDS: MORPHINE 2 MG/1 ML SYRINGE IV PRN (01:16)
[2021-11-24] MEDS: NITROGLYCERIN SL 0.4 MG TABLET SL PRN ×2 (01:58→02:03)
[2021-11-24] MEDS ORDERED: ACETAMINOPHEN 325 MG TABLET PO PRN (02:20)
[2021-11-24 03:52] LABS: Basophils % 0.3 % (0.0-0.8); Eosinophils # 0.1 10*3/uL (0.0-0.87); Eosinophils % 1.5 % (0.00-10.9); Hematocrit 36.1 VOL% (35.7-47.0); Hemoglobin 12.1 GM/DL (12.0-16.0); Immature Granulocytes % 0.5 %; Immature Granulocytes Absolute 0.04 #; Lymphocytes # 1.6 10*3/uL (1.4-4.0); Mean Corpuscular HGB Conc 33.5 GM/DL (32-36); Mean Corpuscular Volume 94.5 FL (87-102); Mean Platelet Volume 10.5 FL (9.6-12.0); Monocytes # 0.7 10*3/uL (0.11-0.8); Monocytes % 7.7 % (1.7-12.7); Platelet Count 239 T/CUMM (130-400); Red Blood Count 3.82 MC/CUMM (3.8-5.5); White Blood Count 8.6 T/CUMM (4-12)
[2021-11-24 04:08] LABS: Calcium 9.7 MG/DL (8.5-10.1); Osmolality,Calculated 275.8 MOS/KG (273-304)
[2021-11-24] MEDS: ENOXAPARIN 40 MG/0.4 ML SYRINGE SUBCUT SCH (04:22)
[2021-11-24 04:28] LABS: Calcium 9.5 MG/DL (8.5-10.1); Osmolality,Calculated 275.8 MOS/KG (273-304); Potassium 4.3 MMOL/L (3.5-5.1)
[2021-11-24] MEDS: ROSUVASTATIN 10 MG TABLET PO SCH (09:09)
[2021-11-24] MEDS: TICAGRELOR 90 MG TABLET PO SCH ×2 (09:09→21:08)
[2021-11-24] MEDS: LOSARTAN 50 MG TABLET PO SCH (09:09)
[2021-11-24] MEDS: METOPROLOL SUCCINATE XL 25 MG TABLET PO SCH (09:09)
[2021-11-24] MEDS: PANTOPRAZOLE 40 MG TABLET PO SCH (09:09)
[2021-11-24] MEDS: ASPIRIN EC 81 MG TABLET PO SCH (09:09)
[2021-11-24] MEDS: SACUBITRIL/VALSARTAN 49-51 MG TABLET PO SCH (21:08)
[2021-11-25 04:37] LABS: Basophils % 0.4 % (0.0-0.8); Eosinophils # 0.1 10*3/uL (0.0-0.87); Eosinophils % 1.2 % (0.00-10.9); Hematocrit 37.9 VOL% (35.7-47.0); Hemoglobin 12.7 GM/DL (12.0-16.0); Immature Granulocytes % 0.3 %; Immature Granulocytes Absolute 0.03 #; Lymphocytes # 2.6 10*3/uL (1.4-4.0); Lymphocytes % 25.9 % (21.3-54.2); Mean Corpuscular HGB Conc 33.5 GM/DL (32-36); Mean Corpuscular Volume 94.8 FL (87-102); Mean Platelet Volume 10.1 FL (9.6-12.0); Monocytes # 0.7 10*3/uL (0.11-0.8); Monocytes % 6.4 % (1.7-12.7); Neutrophils % 65.8 % (38.7-73.9); Platelet Count 235 T/CUMM (130-400); Red Cell Distribution Width 11.9 % (9.3-17.3); White Blood Count 10.2 T/CUMM (4-12)
[2021-11-25] MEDS: ENOXAPARIN 40 MG/0.4 ML SYRINGE SUBCUT SCH (04:39)
[2021-11-25 04:59] LABS: Calcium 9.6 MG/DL (8.5-10.1); Osmolality,Calculated 277.7 MOS/KG (273-304); Potassium 4.2 MMOL/L (3.5-5.1)
[2021-11-25] MEDS: SACUBITRIL/VALSARTAN 49-51 MG TABLET PO SCH ×2 (09:42→20:42)
[2021-11-25] MEDS: METOPROLOL SUCCINATE XL 25 MG TABLET PO SCH (09:43)
[2021-11-25] MEDS: PANTOPRAZOLE 40 MG TABLET PO SCH (09:43)
[2021-11-25] MEDS: TICAGRELOR 90 MG TABLET PO SCH (09:43)
[2021-11-25] MEDS: ASPIRIN EC 81 MG TABLET PO SCH (09:43)
[2021-11-25] MEDS: ROSUVASTATIN 10 MG TABLET PO SCH (09:43)
[2021-11-25] MEDS: DAPAGLIFLOZIN 10 MG TABLET PO SCH (09:43)
[2021-11-25] MEDS ORDERED: FUROSEMIDE 20 MG/2 ML VIAL IV ONE (09:55)
[2021-11-25] MEDS: CLOPIDOGREL 75 MG TABLET PO SCH (12:05)
[2021-11-25] MEDS: MORPHINE 2 MG/1 ML SYRINGE IV PRN ×2 (12:10→18:36)
[2021-11-25] MEDS ORDERED: CLOPIDOGREL 300 MG TABLET PO ONE (15:11)
[2021-11-25] MEDS: SPIRONOLACTONE 25 MG TABLET PO SCH (15:42)
[2021-11-26 04:39] LABS: Basophils # 0.1 10*3/uL (0.0-0.2); Basophils % 0.5 % (0.0-0.8); Eosinophils # 0.2 10*3/uL (0.0-0.87); Eosinophils % 1.9 % (0.00-10.9); Hematocrit 36.8 VOL% (35.7-47.0); Hemoglobin 12.4 GM/DL (12.0-16.0); Immature Granulocytes % 0.4 %; Immature Granulocytes Absolute 0.04 #; Lymphocytes # 2.5 10*3/uL (1.4-4.0); Lymphocytes % 25.8 % (21.3-54.2); Mean Corpuscular HGB Conc 33.7 GM/DL (32-36); Mean Corpuscular Volume 93.6 FL (87-102); Mean Platelet Volume 10.2 FL (9.6-12.0); Monocytes # 0.7 10*3/uL (0.11-0.8); Neutrophils % 64.4 % (38.7-73.9); Platelet Count 248 T/CUMM (130-400); Red Blood Count 3.93 MC/CUMM (3.8-5.5); White Blood Count 9.8 T/CUMM (4-12)
[2021-11-26] MEDS: MORPHINE 2 MG/1 ML SYRINGE IV PRN (04:42)
[2021-11-26] MEDS: ENOXAPARIN 40 MG/0.4 ML SYRINGE SUBCUT SCH (04:42)
[2021-11-26 04:54] LABS: Calcium 10.3 MG/DL (8.5-10.1); Osmolality,Calculated 281.5 MOS/KG (273-304); Potassium 3.5 MMOL/L (3.5-5.1)
[2021-11-26] MEDS: DAPAGLIFLOZIN 10 MG TABLET PO SCH (08:21)
[2021-11-26] MEDS: SPIRONOLACTONE 25 MG TABLET PO SCH (08:22)
[2021-11-26] MEDS: ASPIRIN EC 81 MG TABLET PO SCH (08:22)
[2021-11-26] MEDS: SACUBITRIL/VALSARTAN 49-51 MG TABLET PO SCH ×2 (08:22→21:47)
[2021-11-26] MEDS: PANTOPRAZOLE 40 MG TABLET PO SCH (08:22)
[2021-11-26] MEDS: METOPROLOL SUCCINATE XL 25 MG TABLET PO SCH (08:23)
[2021-11-26] MEDS: CLOPIDOGREL 75 MG TABLET PO SCH (08:23)
[2021-11-26] MEDS: ROSUVASTATIN 10 MG TABLET PO SCH (08:23)
[2021-11-26] MEDS ORDERED: FUROSEMIDE 20 MG/2 ML VIAL IV ONE (10:29)
[2021-11-26] MEDS ORDERED: MAGNESIUM HYDROXIDE SUSP 30 ML UDCUP PO PRN (15:44)
[2021-11-26] MEDS ORDERED: POTASSIUM CHLORIDE 20 MEQ TABLET PO ONE (18:04)
[2021-11-26] MEDS: POLYETHYLENE GLYCOL POWDER 17 GM PACK PO SCH (21:47)
[2021-11-26] MEDS: DOCUSATE SODIUM 100 MG CAPSULE PO SCH (21:47)
[2021-11-27] MEDS: MORPHINE 2 MG/1 ML SYRINGE IV PRN (01:55)
[2021-11-27 04:47] LABS: Basophils % 0.6 % (0.0-0.8); Eosinophils # 0.2 10*3/uL (0.0-0.87); Eosinophils % 2.9 % (0.00-10.9); Hemoglobin 11.3 GM/DL (12.0-16.0); Immature Granulocytes % 0.4 %; Immature Granulocytes Absolute 0.03 #; Lymphocytes # 2.3 10*3/uL (1.4-4.0); Mean Corpuscular HGB Conc 34.2 GM/DL (32-36); Mean Corpuscular Volume 94.6 FL (87-102); Mean Platelet Volume 10.3 FL (9.6-12.0); Monocytes # 0.6 10*3/uL (0.11-0.8); Monocytes % 7.9 % (1.7-12.7); Neutrophils % 56.2 % (38.7-73.9); Platelet Count 242 T/CUMM (130-400); Red Blood Count 3.49 MC/CUMM (3.8-5.5); White Blood Count 7.2 T/CUMM (4-12)
[2021-11-27 05:14] LABS: Calcium 9.6 MG/DL (8.5-10.1); Osmolality,Calculated 281.7 MOS/KG (273-304); Potassium 4.3 MMOL/L (3.5-5.1)
[2021-11-27] MEDS: ENOXAPARIN 40 MG/0.4 ML SYRINGE SUBCUT SCH (06:26)
[2021-11-27] MEDS ORDERED: LINACLOTIDE 145 MCG CAPSULE PO SCH (07:30)
[2021-11-27] MEDS: DAPAGLIFLOZIN 10 MG TABLET PO SCH (08:51)
[2021-11-27] MEDS: POLYETHYLENE GLYCOL POWDER 17 GM PACK PO SCH ×2 (08:51→21:18)
[2021-11-27] MEDS: SACUBITRIL/VALSARTAN 49-51 MG TABLET PO SCH ×2 (08:51→21:16)
[2021-11-27] MEDS: PANTOPRAZOLE 40 MG TABLET PO SCH (08:52)
[2021-11-27] MEDS: SPIRONOLACTONE 25 MG TABLET PO SCH (08:52)
[2021-11-27] MEDS: ASPIRIN EC 81 MG TABLET PO SCH (08:52)
[2021-11-27] MEDS: METOPROLOL SUCCINATE XL 25 MG TABLET PO SCH (08:52)
[2021-11-27] MEDS: ROSUVASTATIN 10 MG TABLET PO SCH (08:52)
[2021-11-27] MEDS: DOCUSATE SODIUM 100 MG CAPSULE PO SCH ×2 (08:52→21:16)
[2021-11-27] MEDS: CLOPIDOGREL 75 MG TABLET PO SCH (08:53)
[2021-11-27] MEDS ORDERED: ENOXAPARIN 40 MG/0.4 ML SYRINGE SUBCUT SCH (09:00)
[2021-11-27] MEDS ORDERED: NITROGLYCERIN 2% OINT 1 INCH/GM PACK TOP ONE (09:30)
[2021-11-27] MEDS: tiZANidine 4 MG TABLET PO SCH (21:16)
[2021-11-27] MEDS: GABAPENTIN 300 MG CAPSULE PO SCH (21:16)
[2021-11-28 05:01] LABS: Basophils % 0.6 % (0.0-0.8); Eosinophils # 0.2 10*3/uL (0.0-0.87); Eosinophils % 3.6 % (0.00-10.9); Hematocrit 30.8 VOL% (35.7-47.0); Hemoglobin 10.2 GM/DL (12.0-16.0); Immature Granulocytes % 0.5 %; Immature Granulocytes Absolute 0.03 #; Lymphocytes # 2.4 10*3/uL (1.4-4.0); Lymphocytes % 37.4 % (21.3-54.2); Mean Corpuscular HGB Conc 33.1 GM/DL (32-36); Mean Platelet Volume 10.5 FL (9.6-12.0); Monocytes # 0.5 10*3/uL (0.11-0.8); Monocytes % 8.1 % (1.7-12.7); Neutrophils % 49.8 % (38.7-73.9); Platelet Count 234 T/CUMM (130-400); Red Blood Count 3.21 MC/CUMM (3.8-5.5); Red Cell Distribution Width 11.9 % (9.3-17.3); White Blood Count 6.4 T/CUMM (4-12)
[2021-11-28 05:27] LABS: Calcium 9.4 MG/DL (8.5-10.1); Osmolality,Calculated 280.8 MOS/KG (273-304); Potassium 4.4 MMOL/L (3.5-5.1)
[2021-11-28] MEDS ORDERED: diphenhydrAMINE CAP 25 MG CAPSULE PO ONE (06:00)
[2021-11-28] MEDS ORDERED: DIAZEPAM 5 MG TABLET PO ONE (06:00)
[2021-11-28] MEDS ORDERED: SODIUM CHLORIDE 0.45% 1,000 ML IV SCH (07:00)
[2021-11-28] MEDS: POLYETHYLENE GLYCOL POWDER 17 GM PACK PO SCH ×2 (09:21→20:19)
[2021-11-28] MEDS: SPIRONOLACTONE 25 MG TABLET PO SCH (09:22)
[2021-11-28] MEDS: CLOPIDOGREL 75 MG TABLET PO SCH (09:22)
[2021-11-28] MEDS: DAPAGLIFLOZIN 10 MG TABLET PO SCH (09:22)
[2021-11-28] MEDS: DOCUSATE SODIUM 100 MG CAPSULE PO SCH ×2 (09:22→20:18)
[2021-11-28] MEDS: tiZANidine 4 MG TABLET PO SCH (09:22)
[2021-11-28] MEDS: PANTOPRAZOLE 40 MG TABLET PO SCH (09:22)
[2021-11-28] MEDS: GABAPENTIN 300 MG CAPSULE PO SCH ×3 (09:22→20:18)
[2021-11-28] MEDS: ROSUVASTATIN 10 MG TABLET PO SCH (09:22)
[2021-11-28] MEDS: ASPIRIN EC 81 MG TABLET PO SCH (09:22)
[2021-11-28] MEDS: LINACLOTIDE 145 MCG CAPSULE PO SCH (09:26)
[2021-11-28] MEDS: ISOSORBIDE MONONITRATE 30 MG TABLET PO SCH (11:32)
[2021-11-28] MEDS: BACLOFEN 10 MG TABLET PO SCH (20:18)
[2021-11-29] MEDS: ASPIRIN EC 81 MG TABLET PO SCH (08:47)
[2021-11-29] MEDS: LINACLOTIDE 145 MCG CAPSULE PO SCH (08:47)
[2021-11-29] MEDS: DAPAGLIFLOZIN 10 MG TABLET PO SCH (08:47)
[2021-11-29] MEDS: ISOSORBIDE MONONITRATE 30 MG TABLET PO SCH (08:48)
[2021-11-29] MEDS: CLOPIDOGREL 75 MG TABLET PO SCH (08:48)
[2021-11-29] MEDS: METOPROLOL SUCCINATE XL 25 MG TABLET PO SCH (08:48)
[2021-11-29] MEDS: ROSUVASTATIN 10 MG TABLET PO SCH (08:48)
[2021-11-29] MEDS: VITAMIN E 400 UNIT CAPSULE PO SCH (08:48)
[2021-11-29] MEDS: SPIRONOLACTONE 25 MG TABLET PO SCH (08:48)
[2021-11-29] MEDS: DOCUSATE SODIUM 100 MG CAPSULE PO SCH ×2 (08:48→20:55)
[2021-11-29] MEDS: CHOLECALCIFEROL 1,000 UNIT TABLET PO SCH (08:48)
[2021-11-29] MEDS: PANTOPRAZOLE 40 MG TABLET PO SCH (08:48)
[2021-11-29] MEDS: MULTIVITAMIN (CENTRUM) TABLET PO SCH (08:48)
[2021-11-29] MEDS: COENZYME Q10 100 MG CAPSULE PO SCH (08:48)
[2021-11-29] MEDS: GABAPENTIN 300 MG CAPSULE PO SCH ×3 (08:48→20:55)
[2021-11-29] MEDS: POLYETHYLENE GLYCOL POWDER 17 GM PACK PO SCH ×2 (08:49→20:55)
[2021-11-29 09:01] LABS: Basophils % 0.5 % (0.0-0.8); Eosinophils # 0.1 10*3/uL (0.0-0.87); Eosinophils % 2.3 % (0.00-10.9); Hematocrit 32.8 VOL% (35.7-47.0); Hemoglobin 11.3 GM/DL (12.0-16.0); Immature Granulocytes % 0.3 %; Immature Granulocytes Absolute 0.02 #; Lymphocytes # 1.3 10*3/uL (1.4-4.0); Lymphocytes % 21.4 % (21.3-54.2); Mean Corpuscular HGB Conc 34.5 GM/DL (32-36); Mean Corpuscular Volume 94.3 FL (87-102); Monocytes # 0.3 10*3/uL (0.11-0.8); Monocytes % 4.4 % (1.7-12.7); Neutrophils % 71.1 % (38.7-73.9); Platelet Count 276 T/CUMM (130-400); Red Blood Count 3.48 MC/CUMM (3.8-5.5); Red Cell Distribution Width 11.9 % (9.3-17.3); White Blood Count 6.2 T/CUMM (4-12)
[2021-11-29 09:40] LABS: Albumin 3.8 G/DL (3.4-5.0); Bilirubin,Total 0.7 MG/DL (0.20-1.00); Osmolality,Calculated 287.7 MOS/KG (273-304); Potassium 3.9 MMOL/L (3.5-5.1); Total Protein 7.1 G/DL (6.4-8.2)
[2021-11-29] MEDS: BACLOFEN 10 MG TABLET PO SCH (20:55)
[2021-11-30 05:01] LABS: Basophils # 0.1 10*3/uL (0.0-0.2); Basophils % 0.8 % (0.0-0.8); Eosinophils # 0.3 10*3/uL (0.0-0.87); Hematocrit 33.8 VOL% (35.7-47.0); Hemoglobin 10.9 GM/DL (12.0-16.0); Immature Granulocytes % 0.3 %; Immature Granulocytes Absolute 0.02 #; Lymphocytes # 2.6 10*3/uL (1.4-4.0); Lymphocytes % 43.2 % (21.3-54.2); Mean Corpuscular HGB Conc 32.2 GM/DL (32-36); Mean Corpuscular Volume 97.1 FL (87-102); Mean Platelet Volume 10.3 FL (9.6-12.0); Monocytes # 0.5 10*3/uL (0.11-0.8); Monocytes % 7.5 % (1.7-12.7); Neutrophils % 43.2 % (38.7-73.9); Platelet Count 301 T/CUMM (130-400); Red Blood Count 3.48 MC/CUMM (3.8-5.5); Red Cell Distribution Width 11.9 % (9.3-17.3)
[2021-11-30 05:16] LABS: Albumin 3.7 G/DL (3.4-5.0); Bilirubin,Total 0.5 MG/DL (0.20-1.00); Calcium 10.1 MG/DL (8.5-10.1); Osmolality,Calculated 280.7 MOS/KG (273-304); Potassium 4.6 MMOL/L (3.5-5.1); Total Protein 6.9 G/DL (6.4-8.2)
[2021-11-30] MEDS: MULTIVITAMIN (CENTRUM) TABLET PO SCH (09:49)
[2021-11-30] MEDS: DAPAGLIFLOZIN 10 MG TABLET PO SCH (09:49)
[2021-11-30] MEDS: METOPROLOL SUCCINATE XL 25 MG TABLET PO SCH (09:49)
[2021-11-30] MEDS: GABAPENTIN 300 MG CAPSULE PO SCH (09:49)
[2021-11-30] MEDS: ISOSORBIDE MONONITRATE 30 MG TABLET PO SCH (09:49)
[2021-11-30] MEDS: CHOLECALCIFEROL 1,000 UNIT TABLET PO SCH (09:49)
[2021-11-30] MEDS: CLOPIDOGREL 75 MG TABLET PO SCH (09:49)
[2021-11-30] MEDS: DOCUSATE SODIUM 100 MG CAPSULE PO SCH (09:49)
[2021-11-30] MEDS: SPIRONOLACTONE 25 MG TABLET PO SCH (09:50)
[2021-11-30] MEDS: ROSUVASTATIN 10 MG TABLET PO SCH (09:50)
[2021-11-30] MEDS: VITAMIN E 400 UNIT CAPSULE PO SCH (09:50)
[2021-11-30] MEDS: ASPIRIN EC 81 MG TABLET PO SCH (09:51)
[2021-11-30] MEDS: POLYETHYLENE GLYCOL POWDER 17 GM PACK PO SCH (09:51)
[2021-11-30] MEDS: COENZYME Q10 100 MG CAPSULE PO SCH (09:51)
[2021-11-30] MEDS: PANTOPRAZOLE 40 MG TABLET PO SCH (09:51)
[2021-11-30] MEDS: LINACLOTIDE 145 MCG CAPSULE PO SCH (09:51)
[2021-11-30 11:47] VITALS: BP 118/74
== END 2021-11-30 13:10 | disposition home health service (06) | DRG 247 ==
LOC: EDUNIT# → EDBD → N.ED 23:51 → SUATTDRO 11-23 02:03 → N.EDINP 11-23 02:03 → N.TELEN 11-23 15:23
PROVIDERS: ADMIT Internal Medicine; ATTEND Family Medicine

== ENCOUNTER 2022-06-07 12:13 | Observation (INO) ==
[2022-06-07] MEDS ORDERED: ASPIRIN 325 MG TABLET PO STA (12:25)
[2022-06-07 13:09] LABS: Basophils % 0.3 % (0.0-0.8); Eosinophils % 0.8 % (0.00-10.9); Hematocrit 37.5 VOL% (35.7-47.0); Hemoglobin 12.5 GM/DL (12.0-16.0); Immature Granulocytes % 0.5 %; Immature Granulocytes Absolute 0.02 #; Lymphocytes # 1.3 10*3/uL (1.4-4.0); Lymphocytes % 32.4 % (21.3-54.2); Mean Corpuscular HGB Conc 33.3 GM/DL (32-36); Mean Corpuscular Volume 91.7 FL (87-102); Mean Platelet Volume 9.4 FL (9.6-12.0); Monocytes # 0.2 10*3/uL (0.11-0.8); Monocytes % 5.4 % (1.7-12.7); Neutrophils % 60.6 % (38.7-73.9); Platelet Count 270 T/CUMM (130-400); Red Blood Count 4.09 MC/CUMM (3.8-5.5); Red Cell Distribution Width 12.2 % (9.3-17.3); White Blood Count 3.9 T/CUMM (4-12)
[2022-06-07 13:31] LABS: Albumin 3.9 G/DL (3.4-5.0); Bilirubin,Total 0.6 MG/DL (0.20-1.00); Calcium 9.3 MG/DL (8.5-10.1); Potassium 3.9 MMOL/L (3.5-5.1); Total Protein 6.5 G/DL (6.4-8.2)
[2022-06-07] MEDS ORDERED: DEXAMETHASONE 4 MG/1 ML VIAL IV STA (14:21)
[2022-06-07] MEDS ORDERED: ONDANSETRON 4 MG/2 ML VIAL IV PRN (14:43)
[2022-06-07] MEDS ORDERED: ENOXAPARIN 40 MG/0.4 ML SYRINGE SUBCUT SCH (15:00)
[2022-06-07] MEDS: AZITHROMYCIN INJ 500 MG in SODIUM CHLORIDE 0.9% 250 ML IV ONE ×2 (15:35→16:04)
[2022-06-07] MEDS: ALBUTEROL/IPRATROPIUM 3 ML NEB RESP TX SCH (19:12)
[2022-06-07] MEDS: FAMOTIDINE 20 MG TABLET PO SCH (21:14)
[2022-06-07] MEDS: ASCORBIC ACID 500 MG TABLET PO SCH (21:14)
[2022-06-08] MEDS: ALBUTEROL/IPRATROPIUM 3 ML NEB RESP TX SCH ×2 (00:56→07:03)
[2022-06-08 06:10] LABS: Hemoglobin 12.1 GM/DL (12.0-16.0); Immature Granulocytes % 1.7 %; Immature Granulocytes Absolute 0.09 #; Lymphocytes % 19.6 % (21.3-54.2); Mean Corpuscular HGB Conc 33.6 GM/DL (32-36); Mean Corpuscular Volume 92.5 FL (87-102); Mean Platelet Volume 9.5 FL (9.6-12.0); Monocytes # 0.3 10*3/uL (0.11-0.8); Monocytes % 6.6 % (1.7-12.7); Neutrophils % 72.1 % (38.7-73.9); Platelet Count 294 T/CUMM (130-400); Red Blood Count 3.89 MC/CUMM (3.8-5.5); Red Cell Distribution Width 12.2 % (9.3-17.3); White Blood Count 5.2 T/CUMM (4-12)
[2022-06-08 06:39] LABS: Calcium 9.7 MG/DL (8.5-10.1); Potassium 4.1 MMOL/L (3.5-5.1); Risk Ratio 2.9; Thyroid Stimulating Hormone 0.212 uIU/ml (0.358-3.74)
[2022-06-08] MEDS ORDERED: NITROGLYCERIN SL 0.4 MG TABLET SL PRN (07:38)
[2022-06-08 08:27] VITALS: BP 146/70
[2022-06-08] MEDS ORDERED: ROSUVASTATIN 10 MG TABLET PO SCH (09:00)
[2022-06-08] MEDS ORDERED: SACUBITRIL/VALSARTAN 49-51 MG TABLET PO SCH (09:00)
[2022-06-08] MEDS ORDERED: DEXAMETHASONE 4 MG/1 ML VIAL IV SCH (09:00)
[2022-06-08] MEDS ORDERED: DAPAGLIFLOZIN 10 MG TABLET PO SCH (09:00)
[2022-06-08] MEDS ORDERED: ISOSORBIDE MONONITRATE 30 MG TABLET PO SCH (09:00)
[2022-06-08] MEDS ORDERED: COENZYME Q10 100 MG CAPSULE PO SCH (09:00)
[2022-06-08] MEDS ORDERED: CETIRIZINE 10 MG TABLET PO SCH (09:00)
[2022-06-08] MEDS ORDERED: CHOLECALCIFEROL 1,000 UNIT TABLET PO SCH (09:00)
[2022-06-08] MEDS ORDERED: ASPIRIN EC 81 MG TABLET PO SCH (09:00)
[2022-06-08] MEDS ORDERED: ZINC GLUCONATE 50 MG TABLET PO SCH (09:00)
[2022-06-08] MEDS ORDERED: METOPROLOL SUCCINATE XL 25 MG TABLET PO SCH (09:00)
[2022-06-08] MEDS ORDERED: CLOPIDOGREL 75 MG TABLET PO SCH (09:00)
[2022-06-08] MEDS ORDERED: MAGNESIUM SULF RIDER 2 GM/50 ML PREMIX IV ONE (09:22)
[2022-06-08] MEDS: FAMOTIDINE 20 MG TABLET PO SCH (09:38)
[2022-06-08] MEDS: ASCORBIC ACID 500 MG TABLET PO SCH (09:39)
[2022-06-08 09:54] LABS: Free T4 (Free Thyroxine) 1.22 NG/DL (0.76-1.46)
== END 2022-06-08 14:15 | disposition home or self-care (01) ==
LOC: N.EDINP 12:13 → N.ED 12:13 → N.EDINP 15:17 → N.2W 15:31
PROVIDERS: ADMIT Internal Medicine; ATTEND Internal Medicine